=== PATIENT | male | born 1950 | race Two or more races ===

== ENCOUNTER 2019-10-07 05:36 | Day surgery (SDC) | payer OTHER ==
[~2019-10-07 05:36] MED LIST: ASPIR 8181 MG PO; ATACAND32 MG PO; DICLOFENAC POTA50 MG PO; LIPITOR20 MG PO
== END 2019-10-07 14:44 | disposition home or self-care (01) ==
LOC: CIR.AMB 05:36 → ADM 10:45 → EDBD 10:45 → CIR.AMB 14:44
PROVIDERS: ATTEND Orthopaedic Surgery
DX: M75.112 Incomplete rotator cuff tear or rupture of left shoulder, not specified as traumatic (principal); M75.22 Bicipital tendinitis, left shoulder; Z20.828 Contact with and (suspected) exposure to other viral communicable diseases